=== PATIENT | female | born 1970 | race African-American/Black ===

== ENCOUNTER 2016-09-07 07:29 | Emergency (ER) | payer SELFPAY ==
[~2016-09-07] VITALS: Ht 180.3 cm; Wt 97.5 kg
[~2016-09-07 07:29] MED LIST: NAPR40TA PO
[2016-09-07 07:31] VITALS: BP 139/86; PULSE 75; RESP 16; TEMP 98.2; O2SAT 98
--- NOTE | 2016-09-07 08:25 | PD ---
HPI Chief Complaint: Cold / Flu Symptoms Time Seen by Provider: 08:24 Travel History International Travel<30 days: No Contact w/Intl Traveler<30days: No Traveled to known affect area: No History of Present Illness HPI 46-year-old female, with history of asthma, presents to the emergency department with complaint of cough and wheezing times one week with worsening. She does not have an inhaler and her symptoms have been getting worse. She reports chest tightness and feeling short of breath. Reports bilateral shoulder pain secondary to cough exacerbations. Denies history of DVT, PE. Denies hemoptysis, leg edema, recent travel, surgery, hospitalization. Denies nasal congestion, ear pain, sore throat. Denies fever, chills, nausea, vomiting. Asthma is exacerbated by environmental and whether. She is allergic to pollen and works as a instrument maker around chemicals. No known allergies. No other modifying factors or associated signs and symptoms. PFSH Past Medical History Asthma: Yes Anxiety: Yes Respiratory: Yes (ASTHMA ) Social History Alcohol Use: Yes (OCCASIONALLY) Tobacco Use: Yes (< 1/2 PPD) Substance Use: No Allergies-Medications (Allergen,Severity, Reaction): Coded Allergies: No Known Allergies (Unverified , 09/07/16) Reported Meds & Prescriptions Reported Meds & Active Scripts Active Tessalon Perles (Benzonatate) 100 Mg Cap 100 Mg PO TID PRN Ibuprofen 800 Mg Tab 800 Mg PO Q6HR PRN Deltasone (Prednisone) 20 Mg Tab 40 Mg PO DAILY 4 Days start 09/08/2016 Proair Hfa 8.5 GM Inh (Albuterol Sulfate) 90 Mcg/Act Aer 2 Puff INH Q4-6H PRN 108 mcg/actuation Review of Systems Except as stated in HPI: all other systems reviewed are Neg Physical Exam Narrative GENERAL: Well-nourished, well-developed female patient, in no acute distress; afebrile, nontoxic-appearing SKIN: Warm and dry. HEAD: Atraumatic. Normocephalic. EYES: Pupils equal and round. No scleral icterus. No injection or drainage. ENT: Mucosa pink and moist. No erythema or exudates. No uvular edema. No uvular , palatal, or tonsillar deviation. Airway patent. EARS: Bilateral pinnae and external canals appear within normal limits. Bilateral tympanic membranes without erythema, dullness or perforation. NECK: Trachea midline. No lymphadenopathy. CARDIOVASCULAR: Regular rate and rhythm. No murmur appreciated. RESPIRATORY: No accessory muscle use. Lungs with mild Wheezing throughout to auscultation. Breath sounds equal bilaterally. No retractions or tachypnea. No Audible wheezing noted. GASTROINTESTINAL: Abdomen soft, non-tender, nondistended. Hepatic and splenic margins not palpable. Bowel sounds are active 4 quadrants. MUSCULOSKELETAL: No obvious deformities. No clubbing. No cyanosis. No edema. NEUROLOGICAL: Awake and alert. Oriented 3. No obvious cranial nerve deficits. Motor grossly within normal limits. Normal speech. Moves all extremities. 5/5 strength to all extremities. PSYCHIATRIC: Appropriate mood and affect; insight and judgment normal. Data Data Last Documented VS Vital Signs Date Time Temp Pulse Resp B/P Pulse Ox O2 Delivery O2 Flow Rate FiO2 09/07/16 08:57 97 21 09/07/16 07:31 98.2 75 16 139/86 Room Air Orders Prednisone (Deltasone) (09/07/16 08:30) Albuterol-Ipratropium Neb (Duoneb Neb) (09/07/16 08:30) Ibuprofen (Motrin) (09/07/16 08:30) MDM Medical Decision Making Medical Screen Exam Complete: Yes Emergency Medical Condition: Yes Medical Record Reviewed: Yes Differential Diagnosis Asthma exacerbation, viral illness, bronchitis Narrative Course 46-year-old female with history of asthma, physical exam consistent with asthma exacerbation. The patient is in no acute distress without retractions or tachypnea. Bilateral lung sounds with mild diffuse wheezing. Denies recent illness. Afebrile in the ER. Denies fever, chills, nausea, vomiting. Reports chest tightness and shortness of breath. The patient denies history of PE or DVT; denies recent surgery or trauma, hemoptysis, exogenous estrogen and, leg edema. The patient has no present criteria for pulmonary embolism; using the PERC rule for pulmonary embolism there is no need for further workup for PE. EKG with normal sinus rhythm; without ST elevation or depression. DuoNeb 1 and Deltasone ordered. 0921: On reexamination patient reports improvement in symptoms. She denies chest tightness or shortness of breath. Lung sounds are clear and equal bilaterally. Pro-air inhaler, Deltasone, ibuprofen, Tessalon Perles prescribed for home. Patient is medically cleared and stable for discharge. Discussed reasons to return to the emergency department. Instructed patient to follow up with primary care provider. Patient agrees with treatment plan. The patients vital signs are stable and the patient is stable for outpatient follow-up and treatment. Patient discharged home, stable and in no acute distress. Diagnosis Primary Impression: Exacerbation of asthma Referrals: Primary Care Physician Patient Instructions: Asthma (ED), General Instructions Departure Forms: Tests/Procedures, Work Release Enter return to work date: Sep 08, 2016 Additional Instructions: Use albuterol inhaler at home as needed for shortness of breath and wheezing Take oral steroids as prescribed and complete full course avoid asthma triggers such as second hand smoke, dust, known allergens Follow-up with primary care provider within 1 to 2 days Return to emergency department immediately with worsening of symptoms Med/Other Pt SpecificInfo: Prescription(s) given Scripts Benzonatate (Tessalon Perles)100 Mg Ure130 Mg PO TID PRN (COUGH) #21 CAP Ref 0 Prov:Areli Walters 09/07/16 Ibuprofen 800 Mg Hgm997 Mg PO Q6HR PRN (PAIN) #30 TAB Ref 0 Prov:Areli Walters 09/07/16 Prednisone (Deltasone)20 Mg Tab40 Mg PO DAILY 4 Days Ref 0 start 09/08/2016 Prov:Areli Walters 09/07/16 Albuterol 8.5 GM Inh (Proair Hfa 8.5 GM Inh)90 Mcg/Act Aer2 Puff INH Q4-6H PRN ( SHORTNESS OF BREATH) #1 INHALER Ref 0 108 mcg/actuation Prov:Areli Walters 09/07/16 Disposition: 01 DISCHARGE HOME Condition: Stable Areli Walters Sep 07, 2016 08:25
[2016-09-07] MEDS ORDERED: RESP: ALBUTEROL 2.5 MG/IPRATROPIUM 0.5 MG NEB (SCH) INH ONE (08:30)
[2016-09-07] MEDS ORDERED: IBUPROFEN 800 MG TAB PO ONE (08:30)
[2016-09-07] MEDS ORDERED: predniSONE 20 MG TAB PO ONE (08:30)
[2016-09-07] MEDS ORDERED: IBUP800T23 PO (08:36)
[2016-09-07] MEDS ORDERED: ALBUAER3 INH (08:36)
[2016-09-07] MEDS ORDERED: BENZ100 PO (08:36)
[2016-09-07] MEDS ORDERED: PRED-503 PO (08:36)
[2016-09-07 08:57] VITALS: O2SAT 97
== END 2016-09-07 09:42 | disposition home or self-care (01) ==
LOC: NEPB 07:29
DX: J45.901 Unspecified asthma with (acute) exacerbation (principal); F17.210 Nicotine dependence, cigarettes, uncomplicated
CPT/HCPCS: 94664; 99283; J7512

== ENCOUNTER 2017-01-15 08:53 | Emergency (ER) | payer SELFPAY ==
[~2017-01-15] VITALS: Ht 182.9 cm; Wt 98.0 kg
[~2017-01-15 08:53] MED LIST changes: +ALBUAER3 INH; +BENZ100 PO; +IBUP800T23 PO; -NAPR40TA PO; +PRED-503 PO
[2017-01-15 08:55] VITALS: BP 140/82; PULSE 98; RESP 36; TEMP 97.7; O2SAT 96
--- NOTE | 2017-01-15 09:08 | PD ---
HPI Chief Complaint: Cold / Flu Symptoms Time Seen by Provider: 09:07 Travel History International Travel<30 days: No Contact w/Intl Traveler<30days: No Traveled to known affect area: No History of Present Illness HPI 46-year-old female came to the emergency room with history of shortness of breath that has been going on for past 1 week. She is here with her boyfriend. Patient has history of asthma but ran out of her medications. The shortness of breath is progressively worsening and currently she is short of breath at rest. Vital signs are suggestive of tachypnea but rest of the vital signs were within acceptable limits. She has some feeling of chest tightness which she says she feels when she has her asthma exacerbated but no significant chest pain. She seems a little anxious. They moved from [place] about 16 months ago and does not have a primary care.. No history of fever or chills. Patient requested to be given a prescription of nebulizer upon discharge. She has been hospitalized once for asthma about 2 years ago in [place] but no ICU admissions. [facility] Past Medical History Narrative Medical List of her past medical, surgical, social and family history was reviewed from the nursing note. Hx Anticoagulant Therapy: No Asthma: Yes Anxiety: Yes Cardiovascular Problems: No Chemotherapy: No Cerebrovascular Accident: No Diabetes: No Diminished Hearing: No Respiratory: Yes (Asthma) ?: Not LMP: 12/17/16 Past Surgical History Hysterectomy: No Social History Alcohol Use: Yes (OCCASIONALLY) Tobacco Use: Yes (< 1/2 PPD) Substance Use: No Allergies-Medications (Allergen,Severity, Reaction): Coded Allergies: No Known Allergies (Unverified , 09/07/16) Comments No known drug allergies Reported Meds & Prescriptions Reported Meds & Active Scripts Active Nebulizer 1 Mis Mis 1 Ea .ROUTE DIRECTED Nebulizer Kit/Tubing/Mout (N/A) 1 Kit Kit 1 Kit .ROUTE DIRECTED Prednisone 20 Mg Tab 20 Mg PO BID 5 Days Albuterol Neb (Albuterol Sulfate) 2.5 Mg/0.5 Ml Neb 2.5 Mg NEB Q6HR NEB Note: The Albuterol Sulfate Inhalation Solution is concentrated and must be diluted. Read complete instructions carefully before using. Proair Hfa 8.5 GM Inh (Albuterol Sulfate) 90 Mcg/Act Aer 2 Puff INH Q4-6H PRN 108 mcg/actuation Narrative Medication List of her home medications reviewed from the nurse's note. Review of Systems Except as stated in HPI: all other systems reviewed are Neg Physical Exam Narrative GENERAL: Awake, alert, moderate distress SKIN: Focused skin assessment warm/dry. HEAD: Atraumatic. Normocephalic. EYES: Pupils equal and round. No scleral icterus. No injection or drainage. ENT: No nasal bleeding or discharge. Mucous membranes pink and moist. NECK: Trachea midline. No JVD. CARDIOVASCULAR: Regular rate and rhythm. No murmur appreciated. RESPIRATORY: Decreased air entry bilaterally with end expiratory wheeze GASTROINTESTINAL: Abdomen soft, non-tender, nondistended. Hepatic and splenic margins not palpable. MUSCULOSKELETAL: No obvious deformities. No clubbing. No cyanosis. No edema. NEUROLOGICAL: Awake and alert. No obvious cranial nerve deficits. Motor grossly within normal limits. Normal speech. PSYCHIATRIC: Appropriate mood and affect; insight and judgment normal. Data Data Last Documented VS Vital Signs Date Time Temp Pulse Resp B/P Pulse Ox O2 Delivery O2 Flow Rate FiO2 01/15/17 09:34 96 21 01/15/17 09:20 30 Room Air 01/15/17 08:55 97.7 98 140/82 Orders Ecg Monitoring (01/15/17 09:15) Iv Access Insert/Monitor (01/15/17 09:15) Oximetry (01/15/17 09:15) Oxygen Administration (01/15/17 09:15) Methylprednisolone So Succ Inj (Solumedr (01/15/17 09:15) Albuterol-Ipratropium Neb (Duoneb Neb) (01/15/17 09:15) Sodium Chloride 0.9% Flush (Ns Flush) (01/15/17 09:15) Prednisone (Deltasone) (01/15/17 09:30) Albuterol Neb (Albuterol Neb) (01/15/17 10:15) MDM Medical Decision Making Medical Screen Exam Complete: Yes Emergency Medical Condition: Yes Medical Record Reviewed: Yes Differential Diagnosis Acute asthma exacerbation Narrative Course 10:30 AM patient was given 3 duo nebs [id number] along with by mouth prednisone. I went and reassessed her not to long ago and she had just finished with the nebulizer and air entry was significantly improved but still some end expiratory wheeze. I have ordered 2 more albuterol in the nebulizer form and after that patient will be discharged home with prescriptions. She is comfortable with that plan. 10:40 AM I reassessed her after the 2 albuterol nebulizer and air entry is very good with no adventitious breath sounds. Procedures EKG Prior to Arrival: No Diagnosis Primary Impression: Acute asthma exacerbation Qualified Code: J45.41 - Moderate persistent asthma with acute exacerbation Referrals: Primary Care Physician 3 days Additional Instructions: Please return to the ER if the condition worsens or any other new concerns. Otherwise follow up with your primary care. Use the nebulizer/inhaler every 4- 6 hours until symptoms subside. The medications as per the prescription direction. Do not smoke or be around smokers as passive smoking will cause similar symptoms. Scripts Nebulizer 1 Mis Mis #1 EA .ROUTE DIRECTED Ref 0 Prov:Jacob Mcintyre MD 01/15/17 Nebulizer Kit/Tubing/Mout 1 Kit Kit #1 KIT .ROUTE DIRECTED Ref 0 Prov:Jacob Mcintyre MD 01/15/17 Prednisone 20 Mg Tab20 Mg PO BID 5 Days Ref 0 Prov:Jacob Mcintyre MD 01/15/17 Albuterol Neb 2.5 Mg/0.5 Ml Neb2.5 Mg NEB Q6HR NEB #30 BOX Note: The Albuterol Sulfate Inhalation Solution is concentrated and must be diluted. Read complete instructions carefully before using. Prov:Jacob Mcintyre MD 01/15/17 Albuterol 8.5 GM Inh (Proair Hfa 8.5 GM Inh)90 Mcg/Act Aer2 Puff INH Q4-6H PRN ( SHORTNESS OF BREATH) #1 INHALER Ref 0 108 mcg/actuation Prov:Jacob Mcintyre MD 01/15/17 Disposition: 01 DISCHARGE HOME Condition: Stable Jacob Mcintyre MD Jan 15, 2017 09:08
[2017-01-15] MEDS ORDERED: methylPREDNISolone SOD SUCC 125 MG/2 ML VIAL IVP ONE (09:15)
[2017-01-15] MEDS ORDERED: SODIUM CHLORIDE 0.9% FLUSH 10 ML FLUSH IVF PRN (09:15)
[2017-01-15] MEDS: RESP: ALBUTEROL 2.5 MG/IPRATROPIUM 0.5 MG NEB (SCH) INH ×2 (09:30→09:31)
[2017-01-15] MEDS ORDERED: predniSONE 20 MG TAB PO ONE (09:30)
[2017-01-15 09:34] VITALS: O2SAT 96
[2017-01-15] MEDS: RESP: ALBUTEROL 2.5 MG/3 ML NEB (SCH) INH (10:20)
[2017-01-15] MEDS ORDERED: ALBU.5I NEB (10:32)
[2017-01-15] MEDS ORDERED: ALBUAER3 INH (10:32)
[2017-01-15] MEDS ORDERED: PRED20 PO (10:32)
[2017-01-15] MEDS ORDERED: NEBUKIT5 (10:32)
[2017-01-15] MEDS ORDERED: NEBULIZER1 MI1 (10:41)
== END 2017-01-15 10:56 | disposition home or self-care (01) ==
LOC: NEPD 08:53
DX: J45.41 Moderate persistent asthma with (acute) exacerbation (principal); Z72.0 Tobacco use
CPT/HCPCS: 94640; 94664; 99285; J7512; J7613

== ENCOUNTER 2017-06-28 16:30 | Emergency (ER) | payer SELFPAY ==
[~2017-06-28 16:30] MED LIST changes: +ALBU.5I NEB; +ALBU0.08 NEB; -BENZ100 PO; -IBUP800T23 PO; +NEBUKIT5; +NEBULIZER1 MI1; -PRED-503 PO; +PRED20 PO
[2017-06-28 16:33] VITALS: BP 157/87; PULSE 82; RESP 16; TEMP 97.6; O2SAT 98
[2017-06-28] MEDS ORDERED: methylPREDNISolone SOD SUCC 125 MG/2 ML VIAL IM ONE (18:00)
[2017-06-28] MEDS ORDERED: RESP: ALBUTEROL 2.5 MG/IPRATROPIUM 0.5 MG NEB (SCH) NEB ONE (18:00)
--- NOTE | 2017-06-28 18:05 | PD ---
HPI Chief Complaint: Respiratory Symptoms Time Seen by Provider: 17:46 Travel History International Travel<30 days: No Contact w/Intl Traveler<30days: No Traveled to known affect area: No History of Present Illness HPI 46-year-old female presents to the emergency department complaining of shortness of breath for 2 weeks. States that she has been using albuterol inhalers at home and usually takes prednisone for exacerbations. She does not have prednisone at this time and feels more short of breath and is concerned about her condition. Denies fever, chills, abdominal pain. States that she has a cough with a productive clear sputum. States that she "cannot stop coughing". Patient denies runny nose, sore throat, neck pain. Patient denies sick contacts. Patient states this is like her previous exacerbations and request a nebulizer treatment and prednisone. PFSH Past Medical History Hx Anticoagulant Therapy: No Asthma: Yes Anxiety: Yes Cardiovascular Problems: No Chemotherapy: No Cerebrovascular Accident: No Diabetes: No Diminished Hearing: No Respiratory: Yes (ASTHMA) ?: Not Past Surgical History Hysterectomy: No Social History Alcohol Use: Yes (OCCASIONALLY) Tobacco Use: Yes (< 1/2 PPD) Substance Use: No Allergies-Medications (Allergen,Severity, Reaction): Coded Allergies: No Known Allergies (Unverified Adverse Reaction, Unknown, 06/28/17) Reported Meds & Prescriptions Reported Meds & Active Scripts Active Ventolin Hfa 18 GM Inh (Albuterol Sulfate) 90 Mcg/Act Aer 2 Puff INH Q4H PRN Prednisone 20 Mg Tab 20 Mg PO BID 5 Days If your symptoms continue beyond the first prescription, may refill. Nebulizer 1 Mis Mis 1 Ea .ROUTE DIRECTED Nebulizer Kit/Tubing/Mout (N/A) 1 Kit Kit 1 Kit .ROUTE DIRECTED Albuterol Neb (Albuterol Sulfate) 2.5 Mg/0.5 Ml Neb 2.5 Mg NEB Q6HR NEB Note: The Albuterol Sulfate Inhalation Solution is concentrated and must be diluted. Read complete instructions carefully before using. Proair Hfa 8.5 GM Inh (Albuterol Sulfate) 90 Mcg/Act Aer 2 Puff INH Q4-6H PRN 108 mcg/actuation Review of Systems Except as stated in HPI: all other systems reviewed are Neg Physical Exam Narrative GENERAL: Well-nourished, well-developed patient. SKIN: Focused skin assessment warm/dry. HEAD: Normocephalic. EYES: No scleral icterus. No injection or drainage. THROAT: No pharyngeal injection, exudates, or tonsillar hypertrophy. Airway is patent. NECK: Supple, trachea midline. No JVD or lymphadenopathy. CARDIOVASCULAR: Regular rate and rhythm without murmurs, gallops, or rubs. RESPIRATORY: Breath sounds equal bilaterally. No accessory muscle use. Diminished breath sounds diffusely. Wheezing diffusely GASTROINTESTINAL: Abdomen soft, non-tender, nondistended. MUSCULOSKELETAL: No cyanosis, or edema. BACK: Nontender without obvious deformity. No CVA tenderness. Data Data Last Documented VS Vital Signs Date Time Temp Pulse Resp B/P (MAP) Pulse Ox O2 Delivery O2 Flow Rate FiO2 06/28/17 18:50 06/28/17 18:18 Room Air 06/28/17 16:33 97.6 82 16 98 Orders Orders Chest, Pa & Lat (06/28/17 ) Albuterol-Ipratropium Neb (Duoneb Neb) (06/28/17 18:00) Methylprednisolone So Succ Inj (Solumedr (06/28/17 18:00) Ed Discharge Order (06/28/17 18:50) MDM Medical Decision Making Medical Screen Exam Complete: Yes Emergency Medical Condition: Yes Differential Diagnosis Asthma exacerbation versus COPD exacerbation versus upper respiratory infection. Narrative Course 46-year-old female presents to the emergency department complaining of shortness of breath for 2 weeks. States that she has been using albuterol inhalers and usually takes prednisone for exacerbations. She does not have prednisone at this time and feels more short of breath and is concerned about her condition. Denies fever, chills, abdominal pain. States that she has a cough with a productive clear sputum. States that she "cannot stop coughing". Patient denies runny nose, sore throat, neck pain. Patient denies sick contacts. Patient states this is like her previous exacerbations and request a nebulizer treatment and prednisone. Vital signs stable Physical exam-lungs diminished breath sounds in all lung negrete with wheezing. DuoNeb administered. Solu-Medrol IM Chest x-ray- no acute process There is no evidence of patient deterioration throughout visit. Patient has had multiple exacerbations and requested steroids and a breathing treatment. She understands that this condition can be deadly and will follow up with her primary care physician within 2-3 days. Patient is ready to go home and feels better. Prednisone for home. Advised to return for worsening or persistent symptoms Diagnosis Primary Impression: Acute asthma exacerbation Qualified Codes: J45.901 - Unspecified asthma with (acute) exacerbation Referrals: Primary Care Physician Additional Instructions: Follow-up with your primary care physician within 2 days. Her symptoms persist or worsen return to the emergency department Take medications as prescribed Scripts Albuterol 18 GM Inh (Ventolin Hfa 18 GM Inh) 90 Mcg/Act Aer 2 PUFF INH Q4H Y for SHORTNESS OF BREATH, #1 INHALER 0 Refills Prov: Fe Colmenares MD 06/28/17 Prednisone (Prednisone) 20 Mg Tab 20 MG PO BID for 5 Days, TAB 1 Refill If your symptoms continue beyond the first prescription, may refill. Prov: Fe Colmenares MD 06/28/17 Disposition: 01 DISCHARGE HOME Condition: Stable Jaylene Santos Jun 28, 2017 18:05
[2017-06-28] MEDS ORDERED: PRED20 PO (18:06)
--- NOTE | 2017-06-28 18:27 | RADRPT ---
EXAM DATE/TIME: 06/28/2017 17:48 [facility] COMPARISON: CHEST SINGLE AP, February 17, 2016, 1:10. INDICATIONS : Short of breath. MEDICAL HISTORY : Asthma. SURGICAL HISTORY : None. ENCOUNTER: Initial ACUITY: 2 days PAIN SCORE: 0/10 LOCATION: Bilateral chest FINDINGS: PA and lateral views of the chest demonstrate the lungs to be symmetrically aerated without evidence of mass, infiltrate or effusion. The cardiomediastinal contours are unremarkable. Osseous structure s are intact. CONCLUSION: No acute disease. Chucho Stinson MD on June 28, 2017 at 18:25 Board Certified Radiologist. This report was verified electronically.
[2017-06-28] MEDS ORDERED: VENTAER INH (18:54)
== END 2017-06-28 19:09 | disposition home or self-care (01) ==
LOC: NEPK 16:30
DX: J45.901 Unspecified asthma with (acute) exacerbation (principal); F41.9 Anxiety disorder, unspecified; F17.200 Nicotine dependence, unspecified, uncomplicated; Z79.51 Long term (current) use of inhaled steroids; Z79.899 Other long term (current) drug therapy
CPT/HCPCS: 71020; 94664; 96372; 99284; J2930

== ENCOUNTER 2017-09-27 17:15 | Emergency (ER) | payer SELFPAY ==
[~2017-09-27] VITALS: Ht 180.3 cm; Wt 97.5 kg
[~2017-09-27 17:15] MED LIST changes: +VENTAER INH
[2017-09-27 17:16] VITALS: BP 165/94; PULSE 101; RESP 20; TEMP 97.9; O2SAT 96
[2017-09-27] MEDS: RESP: ALBUTEROL 2.5 MG/IPRATROPIUM 0.5 MG NEB (SCH) INH (17:42)
[2017-09-27 17:52] LABS: AUTOMATED NEUTROPHIL # 6.9 TH/MM3 (1.8-7.7); BASOPHIL # 0.1 TH/MM3 (0-0.2); BASOPHIL % 0.9 % (0.0-2.0); EOSINOPHIL # 0.9 TH/MM3 (0-0.4); EOSINOPHIL % 7.5 % (0.0-4.0); HEMATOCRIT 40.7 % (35.0-46.0); HEMOGLOBIN 13.4 GM/DL (11.6-15.3); LYMPH % 21.1 % (9.0-44.0); LYMPHOCYTE # 2.5 TH/MM3 (1.0-4.8); MEAN CELL VOLUME 82.7 FL (80.0-100.0); MEAN CORPUSCULAR HEMOGLOBIN 27.3 PG (27.0-34.0); MEAN PLATELET VOLUME 8.6 FL (7.0-11.0); MONO % 12.4 % (0.0-8.0); MONOCYTE # 1.5 TH/MM3 (0-0.9); NEUT % 58.1 % (16.0-70.0); PLATELET COUNT 354 TH/MM3 (150-450); RED BLOOD COUNT 4.92 MIL/MM3 (4.00-5.30); RED CELL DISTRIBUTION WIDTH 13.8 % (11.6-17.2); WHITE BLOOD COUNT 11.9 TH/MM3 (4.0-11.0)
[2017-09-27 18:13] LABS: BICARBONATE 28.7 MEQ/L (21.0-32.0); CALCIUM 8.9 MG/DL (8.5-10.1); CREATININE 0.88 MG/DL (0.50-1.00)
[2017-09-27] MEDS ORDERED: RESP: ALBUTEROL 2.5 MG/IPRATROPIUM 0.5 MG NEB (SCH) NEB ONE (18:15)
[2017-09-27] MEDS ORDERED: predniSONE 20 MG TAB PO ONE (18:15)
--- NOTE | 2017-09-27 18:23 | PD ---
HPI Chief Complaint: Respiratory Symptoms Time Seen by Provider: 18:06 Travel History International Travel<30 days: No Contact w/Intl Traveler<30days: No Traveled to known affect area: No History of Present Illness HPI This patient complains of asthma exacerbation. She has long-standing asthma. Uses nebulizer at home. Complains of one week of wheezing and congestion and cough. No fever. No chest pain. Symptoms severity is moderate. No alleviating factors. Exacerbating factors include smoking despite asthma PFSH Past Medical History Hx Anticoagulant Therapy: No Asthma: Yes Anxiety: Yes Cardiovascular Problems: No Chemotherapy: No Cerebrovascular Accident: No Diabetes: No Diminished Hearing: No Psychiatric: Yes Respiratory: Yes Immunizations Current: No Tetanus Vaccination: > 5 Years Influenza Vaccination: No ?: Not LMP: 08/28/17 : 2 Para: 2 Past Surgical History Hysterectomy: No Social History Alcohol Use: Yes (OCCASIONALLY) Tobacco Use: Yes (< 1/2 PPD) Substance Use: No Allergies-Medications (Allergen,Severity, Reaction): Coded Allergies: No Known Allergies (Verified Allergy, Unknown, 09/27/17) Reported Meds & Prescriptions Reported Meds & Active Scripts Active Albuterol Neb (Albuterol Sulfate) 2.5 Mg/3 Ml Neb 2.5 Mg NEB TID NEB PRN Review of Systems General / Constitutional: No: Fever Eyes: No: Visual changes HENT: Positive: Congestion, No: Headaches Cardiovascular: No: Chest Pain or Discomfort Respiratory: Positive: Cough, Shortness of Breath, Wheezing Gastrointestinal: No: Abdominal Pain Genitourinary: No: Dysuria Musculoskeletal: No: Pain Skin: No Rash Neurologic: No: Weakness Psychiatric: No: Depression Endocrine: No: Polydipsia Hematologic/Lymphatic: No: Easy Bruising Physical Exam Narrative GENERAL: Well-nourished, well-developed patient with shortness of breath and wheezing . SKIN: Focused skin assessment reveals no rash and nodules. Skin is Warm and dry. HEAD: Atraumatic. Normocephalic. EYES: Pupils equal and round. No scleral icterus. No injection or drainage. ENT: No nasal bleeding or discharge. Mucous membranes pink and moist. NECK: Trachea midline. No JVD. CARDIOVASCULAR: Regular rate and rhythm. No murmur appreciated. RESPIRATORY: No accessory muscle use. Expiratory wheezes and rhonchi . Breath sounds equal bilaterally. GASTROINTESTINAL: Abdomen soft, non-tender, nondistended. Hepatic and splenic margins not palpable. MUSCULOSKELETAL: No obvious deformities. No clubbing. No cyanosis. No edema. NEUROLOGICAL: Awake and alert. No obvious cranial nerve deficits. Motor grossly within normal limits. Normal speech. PSYCHIATRIC: Appropriate mood and affect; insight and judgment normal. Data Data Last Documented VS Vital Signs Date Time Temp Pulse Resp B/P (MAP) Pulse Ox O2 Delivery O2 Flow Rate FiO2 09/27/17 18:05 102 22 95 Room Air 09/27/17 17:16 97.9 165/94 (117) Orders Orders Basic Metabolic Panel (Bmp) (09/27/17 17:31) Complete Blood Count With Diff (09/27/17 17:31) Albuterol-Ipratropium Neb (Duoneb Neb) (09/27/17 17:45) Prednisone (Deltasone) (09/27/17 18:15) Albuterol-Ipratropium Neb (Duoneb Neb) (09/27/17 18:15) Labs Laboratory Tests Test 09/27/17 17:38 White Blood Count 11.9 TH/MM3 Red Blood Count 4.92 MIL/MM3 Hemoglobin 13.4 GM/DL Hematocrit 40.7 % Mean Corpuscular Volume 82.7 FL Mean Corpuscular Hemoglobin 27.3 PG Mean Corpuscular Hemoglobin Concent 33.0 % Red Cell Distribution Width 13.8 % Platelet Count 354 TH/MM3 Mean Platelet Volume 8.6 FL Neutrophils (%) (Auto) 58.1 % Lymphocytes (%) (Auto) 21.1 % Monocytes (%) (Auto) 12.4 % Eosinophils (%) (Auto) 7.5 % Basophils (%) (Auto) 0.9 % Neutrophils # (Auto) 6.9 TH/MM3 Lymphocytes # (Auto) 2.5 TH/MM3 Monocytes # (Auto) 1.5 TH/MM3 Eosinophils # (Auto) 0.9 TH/MM3 Basophils # (Auto) 0.1 TH/MM3 CBC Comment DIFF FINAL Differential Comment Blood Urea Nitrogen 17 MG/DL Creatinine 0.88 MG/DL Random Glucose 101 MG/DL Calcium Level 8.9 MG/DL Sodium Level 138 MEQ/L Potassium Level 4.0 MEQ/L Chloride Level 105 MEQ/L Carbon Dioxide Level 28.7 MEQ/L Anion Gap 4 MEQ/L Estimat Glomerular Filtration Rate 83 ML/MIN MDM Medical Decision Making Medical Screen Exam Complete: Yes Emergency Medical Condition: Yes Medical Record Reviewed: Yes Differential Diagnosis Asthma, URI, bronchitis, pneumonia Narrative Course I have reviewed the patient's electronic medical record. She's been her multiple times for asthma exacerbations I reviewed her labs which are normal including CBC metabolic profile She received 3 nebulizer treatments She is improved and I'm giving her fourth and final at this time I gave her prednisone 100 mg Plan on discharging her with prednisone prescription. She has nebulizer at home Importantly she needs to quit smoking Diagnosis Primary Impression: Acute asthma exacerbation Qualified Codes: J45.31 - Mild persistent asthma with (acute) exacerbation Departure Forms: Tests/Procedures Additional Instructions: The patient was advised to follow up with their physician and return if they worsen. Stop smoking Med/Other Pt SpecificInfo: Prescription(s) given Disposition: 01 DISCHARGE HOME Condition: Stable Jim Sargent MD Sep 27, 2017 18:23
[2017-09-27] MEDS ORDERED: PRED20 PO (18:24)
== END 2017-09-27 19:30 | disposition home or self-care (01) ==
LOC: NEPC 17:15
DX: J45.31 Mild persistent asthma with (acute) exacerbation (principal); F17.210 Nicotine dependence, cigarettes, uncomplicated; F41.9 Anxiety disorder, unspecified
CPT/HCPCS: 80048; 85025; 94640; 94664; 99284; J7512